=== PATIENT | female | born 1985 | race Caucasian/White ===

== ENCOUNTER 2016-09-14 20:40 | Emergency (ER) ==
[2016-09-14 20:49] VITALS: BP 109/73; TEMP 99.2; BMI 29.2
[2016-09-14] MEDS ORDERED: DECADRON 4 MG/ML SDV IM STA (20:58)
[2016-09-14] MEDS ORDERED: TORADOL IM STA (20:58)
--- NOTE | 2016-09-14 20:58 | ED.PDOC ---
[id number] 5d Was moving the furniture at home, started hurting in the tail bone, hurting for 2 days, did take otc meds and rest, but not better. Time Seen by Physician: 20:56 Mode of Arrival: Walk-In Information Source: Patient Nursing and Triage Documentation Reviewed and Agree: Yes Musculoskeletal Complaint Exam - Back Pain Complaint/Exam Mechanism of Injury: Reports: No known trauma Symptoms Are: Still present Timing: Constant Episodes Lasting: Days Initial Severity: Moderate Current Severity: Moderate Location: Reports: Discrete Character: Reports: Aching, Throbbing Aggravating: Reports: Movements, Lifting, Bending, Walking Alleviating: Reports: None Associated Signs and Symptoms: Denies: Swelling, Redness, Bruising, Fever, Weakness, Numbness, Tingling, Abdominal pain, Flank pain, Bladder incontinence, Bowel incontinence, Weight loss, Pain with weight bearing Related History: Reports: Similar episode TAD Risk Factors: Reports: None AAA Risk Factors: Reports: None Cauda Equina Risk Factors: Reports: None Epidural Abcess Risk Factors: Reports: None Related Surgical History: Reports: None Focal Tenderness: Yes Paraspinal Muscle Tenderness: Yes Paraspinal Muscle Spasm: Yes Scoliosis: No Lordosis: No Kyphosis: No SLR Test: Right Negative, Left Negative Hip Motion Testing Pain: Right Negative, Left Negative Focal Weakness: Present: None Focal Sensory Loss: Present: None Gait: Present: Abnormal Differential Diagnoses: Herniated Disk, Strain Review of Systems - Review Of Systems Constitutional: Reports: No symptoms Eyes: Reports: No symptoms Ears, Nose, Mouth, Throat: Reports: No symptoms Respiratory: Reports: No symptoms Cardiac: Reports: No symptoms GI: Reports: No symptoms : Reports: No symptoms Musculoskeletal: Reports: Back pain Skin: Reports: No symptoms Neurological: Reports: No symptoms Endocrine: Reports: No symptoms Hematologic/Lymphatic: Reports: No symptoms All Other Systems: Reviewed and Negative Past Medical History - Past Medical History Previously Healthy: No Endocrine: Reports: None Cardiovascular: Reports: None Respiratory: Reports: None Hematological: Reports: None Gastrointestinal: Reports: None Genitourinary: Reports: None Neuro/Psych: Reports: None Musculoskeletal: Reports: None Cancer: Reports: None Last Menstrual Period: stopped today - Surgical History General Surgical History: Reports: Unknown - Family History Family History: Reports: Unknown - Social History Smoking Status: Current some day smoker Smoking Cessation Counseling Time: > 3 min - 10 min Hx Substance Use: No Alcohol Screening: None - Immunizations Tetanus Shot up to Date: No Physical Exam - Physical Exam Appearance: Obese Pain Distress: Moderate Eyes: JOEL, EOMI, Conjunctiva clear ENT: Ears normal, Nose normal, Oropharynx normal Respiratory: Airway patent, Breath sounds clear, Breath sounds equal, Respirations nonlabored Cardiovascular: RRR, Pulses normal, No rub, No murmur GI/: Soft, Nontender, No masses, Bowel sounds normal, No Organomegaly Musculoskeletal: Normal strength, ROM intact, No edema, No calf tenderness Skin: Warm, Dry, Normal color Neurological: Sensation intact, Motor intact, Reflexes intact, Cranial nerves intact, Alert, Oriented Psychiatric: Affect appropriate, Mood appropriate Critical Care Note - Critical Care Note Total Time (mins): 0 Course - Course Orders, Labs, Meds: Orders Category Date Time Status Dexamethasone 4 mg/ml Inj [Decadron 4 mg/ml Sdv] MEDS 09/14/16 20:58 Discontinued 4 mg IM ONCE STA Ketorolac Tromethamine [Toradol] MEDS 09/14/16 20:58 Discontinued 60 mg IM ONCE STA Medications Discontinued Medications Generic Name Dose Route Start Last Admin Trade Name Freq PRN Reason Stop Dose Admin Dexamethasone Sodium Phosphate 4 mg 09/14/16 20:58 09/14/16 21:12 Decadron 4 Mg/Ml Sdv IM 09/14/16 20:59 4 mg ONCE STA Administration Ketorolac Tromethamine 60 mg 09/14/16 20:58 09/14/16 21:12 Toradol IM 09/14/16 20:59 60 mg ONCE STA Administration Vital Signs: Temp Pulse Resp BP Pulse Ox 09/14/16 20:41 99.2 F 107 H 16 109/73 99 Departure - Departure Time of Disposition: 20:40 Disposition: HOME SELF-CARE Discharge Problem: Backache Instructions: Low Back Strain (ED) Condition: Stable Pt referred to PMD for follow-up: Yes Additional Instructions: REST HOT PACK NEEDS F/U WITH PMD Prescriptions: Cyclobenzaprine HCl [Flexeril] 5 mg PO BID #14 tablet Tramadol HCl 50 mg PO BID #14 tablet Allergies/Adverse Reactions: Allergies No Known Allergies Allergy (Unverified 08/05/16 19:39) Home Medications: Ambulatory Orders Cyclobenzaprine HCl [Flexeril] 5 mg PO BID #14 tablet 09/14/16 Tramadol HCl 50 mg PO BID #14 tablet 09/14/16 Disposition Discussed With: Patient, Family
== END 2016-09-14 21:30 | disposition home or self-care (01) ==
LOC: ED 20:40
DX: S39.012A Strain of muscle, fascia and tendon of lower back, initial encounter (principal); X50.0XXA Overexertion from strenuous movement or load, initial encounter; F17.210 Nicotine dependence, cigarettes, uncomplicated
CPT/HCPCS: 96372; 99282